=== PATIENT | male | born 1985 | race African-American/Black ===

== ENCOUNTER 2017-11-20 18:37 | Observation (INO) | payer OTHER ==
[~2017-11-20] VITALS: Ht 177.8 cm; Wt 55.4 kg
[2017-11-20] MEDS ORDERED: SODIUM CHLORIDE 0.9% 1000ML 1,000 ML IV ONE (18:56)
[2017-11-20] MEDS ORDERED: PIPERACILLIN/TAZOBACTAM 4.5 GM/100ML D5W IV STA (18:56)
--- NOTE | 2017-11-20 19:05 | EMERGENCY ROOM VISIT NOTE ---
History Report prepared by Shayeibe: Cayla Wang Under the Supervision of: Dr. Kendall Roque M.D. First contact with patient: 18:50 Chief Complaint: DEHYDRATION Stated Complaint: ABN LABS NOT EATING OR DRINKING Nursing Triage Summary: hx schizophrenia and is non-verbal patient has had decreased appetite, not eating or drinking. brought into ER for dehydration . History of Present Illness The patient is a 32 year old male who presents to the Emergency Room with complaints of possible dehydration. He is accompanied by 2 guards from [facility], where he resides in the [facility], due to a history of schizophrenia. Notes from [facility] show they were concerned that the patient has not been eating or drinking and has been febrile with an increased heart rate and low blood pressure. Additional history is limited secondary to the patients current mental state. Source of History: nursing staff, other ([facility] staff) History Limited By: other (patient is nonverbal) Onset: [employer] Position: other (global) Quality: other (dehydration) Timing: constant Modifying Factors (Worsening): other (not eating or drinking) Review of Systems See HPI for pertinent positives & negatives. A limited number of systems reviewed and were otherwise negative secondary to the patients mental state. Past Medical & Surgical Medical Problems: (1) Metabolic encephalopathy (2) Schizophrenia Social History Alcohol Use: none Drug Use: none Marital Status: single Housing Status: other ([facility]) Occupation Status: unemployed Current/Historical Medications Scheduled Benztropine Mesylate (Benztropine Mesylate), 0.5 MG PO DAILY Fluoxetine (Prozac), 40 MG PO DAILY Fluphenazine Decanoate (Fluphenazine Decanoate), 37.5 MG IM Q2 WEEKS Allergies Coded Allergies: No Known Allergies (Unverified , 11/20/17) Physical Exam Vital Signs Date Time Temp Pulse Resp B/P (MAP) Pulse Ox O2 Delivery O2 Flow Rate FiO2 11/20/17 22:09 36.8 101 18 116/77 100 11/20/17 21:11 95 13 99 Room Air 11/20/17 21:01 129/69 11/20/17 20:41 87 14 98 Room Air 11/20/17 20:36 85 13 98 Room Air 11/20/17 20:31 93/57 11/20/17 20:06 96 14 100 Room Air 11/20/17 20:01 145/73 11/20/17 19:42 129 20 100 Room Air 11/20/17 19:37 100 15 99 Room Air 11/20/17 19:31 136/72 11/20/17 19:12 100 Room Air 11/20/17 19:11 116 11/20/17 19:07 117 14 100 Room Air 11/20/17 19:01 129/82 11/20/17 18:54 120/81 11/20/17 18:43 37.2 133 22 124/73 99 Room Air Physical Exam GENERAL: Patient is in no acute distress. HEENT: No acute trauma, normocephalic atraumatic, mucous membranes moist, mild nasal congestion with rhinorrhea, no scleral icterus. NECK: No stridor, no adenopathy, no meningismus, trachea is midline. LUNGS: Clear to auscultation when listening anteriorly, breath sounds are equal , no wheezing, no respiratory distress. HEART: Tachycardic heart rate with regular rhythm, no murmurs. ABDOMEN: Soft, nontender, bowel sounds positive, no hernias, no peritonitis. EXTREMITIES: No cyanosis or edema, full range of motion of all the joints without pain or difficulty, no signs for acute trauma. NEUROLOGIC: Patient is awake, moves all extremities, seems somewhat confused though this may be baseline, no focal neuro deficits, answers questions inappropriately SKIN: No rash, no jaundice, no diaphoresis. Medical Decision & Procedures ER Provider Diagnostic Interpretation: Radiology results as stated below per my review and radiologist interpretation: CHEST ONE VIEW PORTABLE CLINICAL HISTORY: Sepsis COMPARISON STUDY: No previous studies for comparison. FINDINGS: The cardiac and mediastinal contours are normal. There is no evidence of focal pulmonary consolidation. There is no evidence of failure. No pleural effusions are visualized. IMPRESSION: No active disease in the chest. Electronically signed by: Vikram Teixeira M.D. 11/20/2017 7:[address] HEAD WITHOUT CONTRAST (CT) CLINICAL HISTORY: confusion CHANGE IN MENTAL STATUS. NONVERBAL PATIENT. COMPARISON STUDY: No previous studies for comparison. TECHNIQUE: Axial CT of the brain is performed from the vertex to the skull base. IV contrast was not administered for this examination. A dose lowering technique was utilized adhering to the principles of ALARA. CT DOSE: 614.27 mGy.cm FINDINGS: No intra or extra-axial mass lesions are visualized. There is no CT evidence of acute cortical infarction. There is no evidence of midline shift. There is no acute hemorrhage. No calvarial fractures are visualized. There is no evidence of pathologic ventricular dilatation. There is no evidence of acute sinusitis IMPRESSION: No acute intracranial findings Electronically signed by: Vikram Teixeira M.D. 11/20/2017 7:59 PM Laboratory Results 11/20/17 19:00 Red Blood Count 4.45, Mean Corpuscular Volume 81.6, Mean Corpuscular Hemoglobin 27.9, Mean Corpuscular Hemoglobin Concent 34.2, Mean Platelet Volume 9.8, Neutrophils (%) (Auto) 76.7, Lymphocytes (%) (Auto) 14.9, Monocytes (%) (Auto) 7.3, Eosinophils (%) (Auto) 0.6, Basophils (%) (Auto) 0.3, Neutrophils # (Auto) 4.72, Lymphocytes # (Auto) 0.92, Monocytes # (Auto) 0.45, Eosinophils # (Auto) 0.04, Basophils # (Auto) 0.02 11/20/17 19:00 Test 11/20/17 19:00 11/20/17 19:10 11/20/17 19:28 White Blood Count 6.16 K/uL (4.8-10.8) Red Blood Count 4.45 M/uL (4.7-6.1) Hemoglobin 12.4 g/dL (14.0-18.0) Hematocrit 36.3 % (42-52) Mean Corpuscular Volume 81.6 fL (80-100) Mean Corpuscular Hemoglobin 27.9 pg (25-34) Mean Corpuscular Hemoglobin Concent 34.2 g/dl (32-36) Platelet Count 268 K/uL (130-400) Mean Platelet Volume 9.8 fL (7.4-10.4) Neutrophils (%) (Auto) 76.7 % Lymphocytes (%) (Auto) 14.9 % Monocytes (%) (Auto) 7.3 % Eosinophils (%) (Auto) 0.6 % Basophils (%) (Auto) 0.3 % Neutrophils # (Auto) 4.72 K/uL (1.4-6.5) Lymphocytes # (Auto) 0.92 K/uL (1.2-3.4) Monocytes # (Auto) 0.45 K/uL (0.11-0.59) Eosinophils # (Auto) 0.04 K/uL (0-0.5) Basophils # (Auto) 0.02 K/uL (0-0.2) RDW Standard Deviation 39.3 fL (36.4-46.3) RDW Coefficient of Variation 13.0 % (11.5-14.5) Immature Granulocyte % (Auto) 0.2 % Immature Granulocyte # (Auto) 0.01 K/uL (0.00-0.02) Prothrombin Time 11.4 SECONDS (9.0-12.0) Prothromb Time International Ratio 1.1 (0.9-1.1) Activated Partial Thromboplast Time 20.3 SECONDS (21.0-31.0) Partial Thromboplastin Ratio 0.8 Anion Gap 6.0 mmol/L (3-11) Est Creatinine Clear Calc Drug Dose 79.3 ml/min Estimated GFR () 108.3 Estimated GFR (Non- 93.5 BUN/Creatinine Ratio 19.5 (10-20) Calcium Level 9.3 mg/dl (8.5-10.1) Magnesium Level 2.3 mg/dl (1.8-2.4) Total Bilirubin 0.6 mg/dl (0.2-1) Aspartate Amino Transf (AST/SGOT) 51 U/L (15-37) Alanine Aminotransferase (ALT/SGPT) 24 U/L (12-78) Alkaline Phosphatase 42 U/L (45-117) Troponin I < 0.015 ng/ml (0-0.045) Total Protein 8.9 gm/dl (6.4-8.2) Albumin 4.2 gm/dl (3.4-5.0) Globulin 4.7 gm/dl (2.5-4.0) Albumin/Globulin Ratio 0.9 (0.9-2) Thyroid Stimulating Hormone (TSH) 1.120 uIu/ml (0.300-4.500) Bedside Lactic Acid Venous 2.58 mmol/L (0.90-1.70) Ammonia < 10.0 umol/L (11-32) Laboratory results reviewed by me. Medications Administered Medications (Trade) Dose Ordered Sig/Josephine Route Start Time Stop Time Status Last Admin Dose Admin Sodium Chloride 1,000 ml @ 999 mls/hr Q1H1M ONCE IV 11/20/17 18:56 11/20/17 19:56 DC 11/20/17 19:43 999 MLS/HR Piperacillin Sod/ Tazobactam Sod (Zosyn Iv) 4.5 gm ONE STAT IV 11/20/17 18:56 11/20/17 19:01 DC 11/20/17 19:43 4.5 GM Lactated Ringer's 1,000 ml @ 999 mls/hr Q1H1M IV 11/20/17 20:00 12/20/17 19:59 11/20/17 20:01 999 MLS/HR ECG Per My Interpretation Indication: weakness Rate (beats per minute): 127 Rhythm: sinus tachycardia (with nonspecific ST changes diffusely) Findings: other (No ST elevation, baseline artifact, no PVC's) ED Course 1853: The patient was evaluated in room B3B. A complete history and physical exam was performed. 1855: Zosyn 4.5 gm IV, NSS 1000 ml @ 999 mls/hr IV. 2041: I reevaluated the patient. He is asleep. I discussed my recommendation he remain in the hospital for further evaluation and management with the [facility] guards and they understand and are agreeable with the plan. 2046: I discussed the patients case with Dr. Naik, [facility] Hospitalist. The patient will be further evaluated. Medical Decision The differential diagnoses considered include pneumonia, electrolyte imbalance, anemia, UTI, dehydration, sepsis, meningitis and viral illness. There is no leukocytosis or concerning anemia. No significant electrolyte abnormality, kidney failure. The patient does have a few scattered liver enzyme elevations. He appears to be in a euthyroid state. Lactic acid level is slightly elevated, this could be consistent with infection or just dehydration. Chest film does not show pneumonia or CHF. EKG shows a sinus tachycardia, no acute ischemia. Cardiac enzyme testing 1 is not consistent with acute cardiac injury. Brain CT shows no acute bleed or mass-effect. Blood cultures are pending. Ammonia level is not elevated. Patient presents dehydrated, he was tachycardic. There was concern for fever at the [facility] however, there was no fever by our monitoring. The patient received IV fluids, he received 1 L of saline and then 1 L of lactated Ringer's. He received IV Zosyn as antibiotic coverage. The patient's heart rate has improved. He is comfortable. He does not seem in significant distress. He does not demonstrate findings consistent with meningitis or meningismus. I do think a hospital stay for monitoring, further workup, and hydration is warranted. I did speak to the patient and the [facility] guards. The on-call hospitalist has been consulted. Case management has been involved. Medication Reconcilliation Current Medication List: was personally reviewed by me Blood Pressure Screening Patient's blood pressure: Elevated blood pressure Blood pressure disposition: Referred to PCP (The patients blood pressure will be further evaluated by the inpatient hospital medicine team) Consults Time Called: 2044 Consulting Physician: Dr. Naik, [facility] Hospitalist Returned Call: 2046 I discussed the patients case with Dr. Naik, [facility] Hospitalist. The patient will be further evaluated. Impression Primary Impression: Tachycardia Additional Impression: Dehydration Scribe Attestation The scribe's documentation has been prepared under my direction and personally reviewed by me in its entirety. I confirm that the note above accurately reflects all work, treatment, procedures, and medical decision making performed by me. Departure Information Dispostion Being Evaluated By Hospitalist Patient Instructions My [facility] Health Problem Qualifiers
--- NOTE | 2017-11-20 19:19 | DIAGNOSTIC IMAGING REPORT ---
CHEST ONE VIEW PORTABLE CLINICAL HISTORY: Sepsis COMPARISON STUDY: No previous studies for comparison. FINDINGS: The cardiac and mediastinal contours are normal. There is no evidence of focal pulmonary consolidation. There is no evidence of failure. No pleural effusions are visualized.[ IMPRESSION: No active disease in the chest. Electronically signed by: Vikram Teixeira M.D. 11/20/2017 7:18 PM Dictated Date/Time: 11/20/2017 7:18 PM
[2017-11-20 19:21] LABS: BASO % 0.3 %; BASO ABS # 0.02 K/uL (0-0.2); EOS % 0.6 %; EOS ABS # 0.04 K/uL (0-0.5); HEMATOCRIT 36.3 % (42-52); HEMOGLOBIN 12.4 g/dL (14.0-18.0); IG# 0.01 K/uL (0.00-0.02); LYMPH % 14.9 %; LYMPH ABS # 0.92 K/uL (1.2-3.4); MEAN CELL VOLUME 81.6 fL (80-100); MEAN CORPUSCULAR HEMOGLOBIN 27.9 pg (25-34); MEAN CORPUSCULAR HGB CONC 34.2 g/dl (32-36); MEAN PLATELET VOLUME 9.8 fL (7.4-10.4); MONO % 7.3 %; MONO ABS # 0.45 K/uL (0.11-0.59); NEUT % 76.7 %; NEUT ABS # 4.72 K/uL (1.4-6.5); PLATELET COUNT 268 K/uL (130-400); RED CELL DISTRIBUTION WIDTH SD 39.3 fL (36.4-46.3); WHITE BLOOD COUNT 6.16 K/uL (4.8-10.8)
[2017-11-20 19:33] LABS: INR 1.1 (0.9-1.1); PTT PATIENT 20.3 SECONDS (21.0-31.0)
[2017-11-20 19:50] LABS: ALBUMIN 4.2 gm/dl (3.4-5.0); ALKALINE PHOSPHATASE 42 U/L (45-117); ALT/SGPT 24 U/L (12-78); AST/SGOT 51 U/L (15-37); BLOOD UREA NITROGEN 20 mg/dl (7-18); CALCIUM 9.3 mg/dl (8.5-10.1); CARBON DIOXIDE 28 mmol/L (21-32); CREATININE 1.05 mg/dl (0.60-1.40); GLUCOSE 100 mg/dl (70-99); POTASSIUM 3.4 mmol/L (3.5-5.1); SODIUM 141 mmol/L (136-145); TOTAL PROTEIN 8.9 gm/dl (6.4-8.2)
[2017-11-20] MEDS: LACTATED RINGER'S 1000ML 1,000 ML IV SCH ×2 (20:01→20:36)
--- NOTE | 2017-11-20 20:01 | DIAGNOSTIC IMAGING REPORT ---
CT HEAD WITHOUT CONTRAST (CT) CLINICAL HISTORY: confusion CHANGE IN MENTAL STATUS. NONVERBAL PATIENT. COMPARISON STUDY: No previous studies for comparison. TECHNIQUE: Axial CT of the brain is performed from the vertex to the skull base. IV contrast was not administered for this examination. A dose lowering technique was utilized adhering to the principles of ALARA. CT DOSE: 614.27 mGy.cm FINDINGS: No intra or extra-axial mass lesions are visualized. There is no CT evidence of acute cortical infarction. There is no evidence of midline shift. There is no acute hemorrhage. No calvarial fractures are visualized. There is no evidence of pathologic ventricular dilatation. There is no evidence of acute sinusitis IMPRESSION: No acute intracranial findings Electronically signed by: Vikram Teixeira M.D. 11/20/2017 7:59 PM Dictated Date/Time: 11/20/2017 7:58 PM
--- NOTE | 2017-11-20 21:11 | History and Physical ---
History & Physical Date & Time of Service: November 20, 2017 at 21:11 Chief Complaint: Abn Labs Not Eating Or Drinking Primary Care Physician: Mayuri TURNER History of Present Illness Source: hospital records, police This is a 32 yo m from [facility] with a history of schizophrenia that presents to us with possible dehydration and increasing weakness. Limited history as the patient is responding to questions however limited responses. The guards states that he was in the general population a few weeks ago and he started to stop washing, taking care of himself or taking his medications. He was transferred to mental health as he continued to decline and had increasing weakness as well. The one guard notes that they had to force him to take his medications this morning as he has not been taking them for days. The patient was sent to the ED for evaluation for concern for infection. He lays shivering in the bed and oriented x 3. When asked about pain he denies this. Past Medical/Surgical History Medical Problems: (1) Metabolic encephalopathy (2) Schizophrenia Family History Unable to obtain due to limited responses Social History Unable to obtain due to limited responses Drug Use: none Marital Status: single Occupational Status: unemployed Immunizations History of Influenza Vaccine: Unknown History of Tetanus Vaccine?: Unknown History of Pneumococcal: Unknown History of Hepatitis B Vaccine: Unknown Allergies Coded Allergies: No Known Allergies (Unverified , 11/20/17) Home Medications Scheduled Benztropine Mesylate (Benztropine Mesylate), 0.5 MG PO DAILY Fluoxetine (Prozac), 40 MG PO DAILY Fluphenazine Decanoate (Fluphenazine Decanoate), 37.5 MG IM Q2 WEEKS Review of Systems Unable to obtain due to limited responses Physical Exam Vital Signs Date Time Temp Pulse Resp B/P (MAP) Pulse Ox O2 Delivery O2 Flow Rate FiO2 11/20/17 20:36 85 13 98 Room Air 11/20/17 20:31 93/57 11/20/17 20:06 96 14 100 Room Air 11/20/17 20:01 145/73 11/20/17 19:42 129 20 100 Room Air 11/20/17 19:37 100 15 99 Room Air 11/20/17 19:31 136/72 11/20/17 19:12 100 Room Air 11/20/17 19:11 116 11/20/17 19:07 117 14 100 Room Air 11/20/17 19:01 129/82 11/20/17 18:54 120/81 11/20/17 18:43 37.2 133 22 124/73 99 Room Air General Appearance: + mild distress (stoic , does not turn head to look at interviewer to answer) Head: normocephalic, atraumatic Eyes: normal inspection ENT: normal ENT inspection Neck: supple Respiratory/Chest: normal breath sounds, no respiratory distress, no accessory muscle use Cardiovascular: regular rate, rhythm, no murmur, normal peripheral pulses Abdomen/GI: normal bowel sounds, non tender, soft Extremities/Musculoskelatal: no calf tenderness, no pedal edema Neurologic/Psych: alert, oriented x 3, + pertinent finding (flat affect) Skin: normal color, warm/dry, no rash Lymphatic: no adenopathy Diagnostics Laboratory Results Results Past 24 Hours Test 11/20/17 19:00 11/20/17 19:10 11/20/17 19:28 Range/Units White Blood Count 6.16 4.8-10.8 K/uL Red Blood Count 4.45 4.7-6.1 M/uL Hemoglobin 12.4 14.0-18.0 g/dL Hematocrit 36.3 42-52 % Mean Corpuscular Volume 81.6 80-100 fL Mean Corpuscular Hemoglobin 27.9 25-34 pg Mean Corpuscular Hemoglobin Concent 34.2 32-36 g/dl Platelet Count 268 130-400 K/uL Mean Platelet Volume 9.8 7.4-10.4 fL Neutrophils (%) (Auto) 76.7 % Lymphocytes (%) (Auto) 14.9 % Monocytes (%) (Auto) 7.3 % Eosinophils (%) (Auto) 0.6 % Basophils (%) (Auto) 0.3 % Neutrophils # (Auto) 4.72 1.4-6.5 K/uL Lymphocytes # (Auto) 0.92 1.2-3.4 K/uL Monocytes # (Auto) 0.45 0.11-0.59 K/uL Eosinophils # (Auto) 0.04 0-0.5 K/uL Basophils # (Auto) 0.02 0-0.2 K/uL RDW Standard Deviation 39.3 36.4-46.3 fL RDW Coefficient of Variation 13.0 11.5-14.5 % Immature Granulocyte % (Auto) 0.2 % Immature Granulocyte # (Auto) 0.01 0.00-0.02 K/uL Prothrombin Time 11.4 9.0-12.0 SECONDS Prothromb Time International Ratio 1.1 0.9-1.1 Activated Partial Thromboplast Time 20.3 21.0-31.0 SECONDS Partial Thromboplastin Ratio 0.8 Sodium Level 141 136-145 mmol/L Potassium Level 3.4 3.5-5.1 mmol/L Chloride Level 107 98-107 mmol/L Carbon Dioxide Level 28 21-32 mmol/L Anion Gap 6.0 3-11 mmol/L Blood Urea Nitrogen 20 7-18 mg/dl Creatinine 1.05 0.60-1.40 mg/dl Est Creatinine Clear Calc Drug Dose 79.3 ml/min Estimated GFR () 108.3 Estimated GFR (Non- 93.5 BUN/Creatinine Ratio 19.5 10-20 Random Glucose 100 70-99 mg/dl Calcium Level 9.3 8.5-10.1 mg/dl Magnesium Level 2.3 1.8-2.4 mg/dl Total Bilirubin 0.6 0.2-1 mg/dl Aspartate Amino Transf (AST/SGOT) 51 15-37 U/L Alanine Aminotransferase (ALT/SGPT) 24 12-78 U/L Alkaline Phosphatase 42 45-117 U/L Troponin I < 0.015 0-0.045 ng/ml Total Protein 8.9 6.4-8.2 gm/dl Albumin 4.2 3.4-5.0 gm/dl Globulin 4.7 2.5-4.0 gm/dl Albumin/Globulin Ratio 0.9 0.9-2 Thyroid Stimulating Hormone (TSH) 1.120 0.300-4.500 uIu/ml Bedside Lactic Acid Venous 2.58 0.90-1.70 mmol/L Ammonia < 10.0 11-32 umol/L Microbiology Results 11/20/17 Blood Culture, Received Pending 11/20/17 Blood Culture, Received Pending Diagnostic Radiology CHEST ONE VIEW PORTABLE CLINICAL HISTORY: Sepsis COMPARISON STUDY: No previous studies for comparison. FINDINGS: The cardiac and mediastinal contours are normal. There is no evidence of focal pulmonary consolidation. There is no evidence of failure. No pleural effusions are visualized.[ IMPRESSION: No active disease in the chest. [~ rep ct add3]] CT HEAD WITHOUT CONTRAST (CT) CLINICAL HISTORY: confusion CHANGE IN MENTAL STATUS. NONVERBAL PATIENT. COMPARISON STUDY: No previous studies for comparison. TECHNIQUE: Axial CT of the brain is performed from the vertex to the skull base. IV contrast was not administered for this examination. A dose lowering technique was utilized adhering to the principles of ALARA. CT DOSE: 614.27 mGy.cm FINDINGS: No intra or extra-axial mass lesions are visualized. There is no CT evidence of acute cortical infarction. There is no evidence of midline shift. There is no acute hemorrhage. No calvarial fractures are visualized. There is no evidence of pathologic ventricular dilatation. There is no evidence of acute sinusitis IMPRESSION: No acute intracranial findings EKG HR 127 QTc 323 Sinus tachycardia without acute ischemic changes, ectopy appreciated Impression Assessment and Plan This is a 32 yo m from [facility] with a history of schizophrenia presenting with FTT, dehydration Dehydration/ Failure to thrive possibly secondary to noncompliance/ uncontrolled schizophrenia vs infection - patient does not have any indication of infection or potential source identified, received Zosyn in the ED - blood culture pending - more likely exacerbation of schizophrenia possible catatonic type - will continue the Fluoxetine and Benztropine; consult psych - repeat CBC in am DVT Prophylaxis - heparin bid FULL CODE Attending addendum: I have physically seen this patient, have supervised the medical residents activities, and agree with the H&P unless as otherwise noted. Assessment and Plan: Dehydration/FTT/uncontrolled schizophrenia-- Received Zosyn IV in the ED empirically, but would not continue without signs or symptoms of infection. IV fluids for rehydration. Continue fluoxetine and benztropine. Consult psychiatry. Follow blood cultures. Serial laboratories. Advanced Directives Existing Advance Directive: No Existing Living Will: No Existing Power of Certified Welding Inspector: No Resuscitation Status VTE Prophylaxis Will order VTE Prophylaxis: Yes Social Service Consult None Apply Note Total Time: Critical Care 30 - 74 minutes Additional Copies To [facility]
[2017-11-20] MEDS ORDERED: ALUMINUM/MAGNESIUM/SIMETH (MAALOX MAX) 30 ML UDC PO PRN ×2 (21:15→22:00)
[2017-11-20] MEDS ORDERED: ACETAMINOPHEN 325 MG TAB PO PRN ×2 (21:15→22:00)
[2017-11-20] MEDS ORDERED: MAGNESIUM HYDROXIDE SUSP 30 ML UDC PO PRN ×2 (21:15→22:00)
[2017-11-20] MEDS ORDERED: POLYETHYLENE (MIRALAX) 17 GM PACK PO PRN ×2 (21:15→23:00)
[2017-11-20] MEDS ORDERED: ONDANSETRON INJ 2 MG/ML 2 ML VIAL IV PRN ×2 (21:15→22:00)
[2017-11-20] MEDS ORDERED: PRLDMDV IM (21:23)
[2017-11-20] MEDS ORDERED: BENZ0.5T2 PO (21:23)
[2017-11-20] MEDS ORDERED: FLUO20CA35 PO (21:23)
[2017-11-20] MEDS ORDERED: FLUPHENAZINE DECANOATE 25 MG/ML IM SCH (21:45)
[2017-11-20 22:30] VITALS: BP_SYST 116; BP_SYST 129; BP_DIAS 77; BP_DIAS 80; PULSE 102; TEMP 36.8; Ht 177.8 cm; Wt 55.4 kg
[2017-11-20 23:46] VITALS: BP 125/62; PULSE 91; TEMP 36.8; O2SAT 100
[2017-11-20 23:59] VITALS: O2SAT 98
[2017-11-21] VITALS (9 sets, daily range): BP systolic 110–149; BP diastolic 73–91; PULSE 76–111; TEMP 36.5–37; O2SAT 97–100
[2017-11-21] MEDS ORDERED: IV FLUIDS COMPLETED PRN (00:15)
[2017-11-21] MEDS: NSS + 20MEQ KCL 1000ML 1,000 ML IV SCH ×3 (02:37→18:27)
[2017-11-21 05:53] LABS: BASO % 0.3 %; BASO ABS # 0.01 K/uL (0-0.2); EOS % 1.1 %; EOS ABS # 0.04 K/uL (0-0.5); HEMATOCRIT 30.4 % (42-52); LYMPH % 29.8 %; LYMPH ABS # 1.08 K/uL (1.2-3.4); MEAN CELL VOLUME 82.6 fL (80-100); MEAN CORPUSCULAR HEMOGLOBIN 27.2 pg (25-34); MEAN CORPUSCULAR HGB CONC 32.9 g/dl (32-36); MEAN PLATELET VOLUME 9.8 fL (7.4-10.4); MONO % 6.9 %; MONO ABS # 0.25 K/uL (0.11-0.59); NEUT % 61.9 %; NEUT ABS # 2.24 K/uL (1.4-6.5); PLATELET COUNT 205 K/uL (130-400); RED CELL DISTRIBUTION WIDTH CV 13.1 % (11.5-14.5); RED CELL DISTRIBUTION WIDTH SD 39.8 fL (36.4-46.3); WHITE BLOOD COUNT 3.62 K/uL (4.8-10.8)
[2017-11-21 06:41] LABS: BLOOD UREA NITROGEN 18 mg/dl (7-18); CALCIUM 8.4 mg/dl (8.5-10.1); CARBON DIOXIDE 29 mmol/L (21-32); CREATININE 0.63 mg/dl (0.60-1.40); GLUCOSE 83 mg/dl (70-99); POTASSIUM 3.5 mmol/L (3.5-5.1); SODIUM 145 mmol/L (136-145)
[2017-11-21] MEDS: FLUOXETINE HCL 20 MG CAP PO SCH (08:32)
[2017-11-21] MEDS: BENZTROPINE MESYLATE 0.5 MG TAB PO SCH (08:32)
[2017-11-21] MEDS: HEPARIN SOD 5000 UNIT/0.5 ML CARP SQ SCH ×2 (08:32→21:00)
[2017-11-21] MEDS ORDERED: BENZTROPINE MESYLATE 0.5 MG TAB PO SCH (09:00)
[2017-11-21] MEDS ORDERED: FLUOXETINE HCL 20 MG CAP PO SCH (09:00)
[2017-11-21] MEDS ORDERED: HEPARIN SOD 5000 UNIT/0.5 ML CARP SQ SCH (09:00)
--- NOTE | 2017-11-21 10:36 | Psychiatric Consultation ---
Consultation Date of Consultation November 21, 2017. Identifying Data 32-year-old male inmate at [facility] with a reported history of schizophrenia who was brought in from their mental health unit and is admitted to the hospitalist service for workup of fever, tachycardia, and hypotension. Psychiatry is consulted due to history of schizophrenia and unresponsiveness. Chief Complaint Nonverbal. History of Present Illness According to records, the patient was brought into the emergency room yesterday [facility] the [facility]. One progress note is available in his chart from 11/20/2017, from [facility]. 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 He had been refusing oral medications and refusing to eat or drink. Yesterday at the [facility]itentiary he received Lorazepam 4 mg, Prolixin immediate release 7.5 mg, and Prolixin Decanoate 37.5 mg all IM. He was more cooperative and eating after receiving the medications, but remains nonverbal. He developed tachycardia, hypotension, and fever, and due to concerns for dehydration or infection, he was transported to the hospital. His medical workup has been unremarkable so far; labs revealed anemia, TSH normal, and no other significant abnormalities. He has had slight intermittent tachycardia here, EKG was sinus tachycardia, and he has been afebrile. He has not been cooperative with any assessments here, does not answer most questions. Contacted the present to request his psychiatric records and were informed by medical staff there that he had no records. Spoke with Dr. Hein, the on-call psychiatrist at the present, who stated she does not know the patient, but does have access to his medical record. She states he does have a psychiatric evaluation and progress notes, and that the team was attempting to get a second opinion for forced medications, as he had been refusing oral medications for months. She does not think he gotten Prolixin Decanoate since April 2017, and said he had also been prescribed fluoxetine, Prolixin, and benztropine orally in the past. Although he had a long-standing history of minimal responsiveness and engagement in treatment, his condition had worsened in the past 2 weeks. She did not know what his commitment status was, although staff at the penitentiary stated he was on a 303 commitment. On my assessment, the patient is awake with eyes open, but does not respond verbally to any questions, does not shake or nod his head, and simply stares straight ahead. The guard state that he spoke minimally to the physician who saw him this morning, but that typically he does not respond to questions. Reviewed the case with Dr. Jacobs, stated that we are attempting to get more information from the penitentiary, and confirmed that he will be returning to their mental health unit at discharge. Past Psychiatric History Past Medication Trials Per the on-call psychiatrist at the present, the patient was on fluoxetine, Prolixin, and benztropine in the past, but has not taken any medication since April 2017. Additional Notes Very little is known about the patient's past history, other than penitentiary records indicating a history of schizophrenia. Patient is nonverbal and does not answer any questions. Past Medical/Surgical History (1) Metabolic encephalopathy (2) Dehydration (3) Tachycardia Allergies Allergies: Coded Allergies: No Known Allergies (Unverified , 11/20/17) Home Medications Scheduled Benztropine Mesylate (Benztropine Mesylate), 0.5 MG PO DAILY Fluphenazine Decanoate (Fluphenazine Decanoate), 37.5 MG IM Q2 WEEKS Family History Patient reports no known family medical history. Unknown. Alcohol Use Unknown. Smoking Use Smoking Status: Unknown if Ever Smoked Substance History Unknown. Personal History Lives in: Inmate at [facility] Review of Systems Patient refuses to answer questions. Examination Vital Signs Vital Signs Past 12 Hours Date Time Temp Pulse Resp B/P (MAP) Pulse Ox O2 Delivery O2 Flow Rate FiO2 11/21/17 08:00 Room Air 11/21/17 07:14 37.0 83 23 149/91 (110) 100 Room Air 11/21/17 04:00 97 Room Air 11/21/17 03:35 37.0 85 18 110/73 (85) 100 Room Air 11/20/17 23:59 98 Room Air 11/20/17 23:46 36.8 91 15 125/62 (83) 100 Room Air Laboratory Results Last 24 Hours Test 11/20/17 19:00 11/20/17 19:10 11/20/17 19:28 11/20/17 23:41 White Blood Count 6.16 K/uL Red Blood Count 4.45 M/uL Hemoglobin 12.4 g/dL Hematocrit 36.3 % Mean Corpuscular Volume 81.6 fL Mean Corpuscular Hemoglobin 27.9 pg Mean Corpuscular Hemoglobin Concent 34.2 g/dl Platelet Count 268 K/uL Mean Platelet Volume 9.8 fL Neutrophils (%) (Auto) 76.7 % Lymphocytes (%) (Auto) 14.9 % Monocytes (%) (Auto) 7.3 % Eosinophils (%) (Auto) 0.6 % Basophils (%) (Auto) 0.3 % Neutrophils # (Auto) 4.72 K/uL Lymphocytes # (Auto) 0.92 K/uL Monocytes # (Auto) 0.45 K/uL Eosinophils # (Auto) 0.04 K/uL Basophils # (Auto) 0.02 K/uL RDW Standard Deviation 39.3 fL RDW Coefficient of Variation 13.0 % Immature Granulocyte % (Auto) 0.2 % Immature Granulocyte # (Auto) 0.01 K/uL Prothrombin Time 11.4 SECONDS Prothromb Time International Ratio 1.1 Activated Partial Thromboplast Time 20.3 SECONDS Partial Thromboplastin Ratio 0.8 Sodium Level 141 mmol/L Potassium Level 3.4 mmol/L Chloride Level 107 mmol/L Carbon Dioxide Level 28 mmol/L Anion Gap 6.0 mmol/L Blood Urea Nitrogen 20 mg/dl Creatinine 1.05 mg/dl Est Creatinine Clear Calc Drug Dose 79.3 ml/min Estimated GFR () 108.3 Estimated GFR (Non- 93.5 BUN/Creatinine Ratio 19.5 Random Glucose 100 mg/dl Calcium Level 9.3 mg/dl Magnesium Level 2.3 mg/dl Total Bilirubin 0.6 mg/dl Aspartate Amino Transf (AST/SGOT) 51 U/L Alanine Aminotransferase (ALT/SGPT) 24 U/L Alkaline Phosphatase 42 U/L Troponin I < 0.015 ng/ml Total Protein 8.9 gm/dl Albumin 4.2 gm/dl Globulin 4.7 gm/dl Albumin/Globulin Ratio 0.9 Thyroid Stimulating Hormone (TSH) 1.120 uIu/ml Bedside Lactic Acid Venous 2.58 mmol/L Ammonia < 10.0 umol/L Lactic Acid Level 1.5 mmol/L Test 11/21/17 02:10 11/21/17 05:11 Urine Color YELLOW Urine Appearance CLEAR Urine pH 5.0 Urine Specific [place] 1.027 Urine Protein TRACE Urine Glucose (UA) NEG Urine Ketones TRACE Urine Occult Blood NEG Urine Nitrite NEG Urine Bilirubin NEG Urine Urobilinogen NEG Urine Leukocyte Esterase NEG Urine WBC (Auto) 1-5 /hpf Urine RBC (Auto) 0-4 /hpf Urine Hyaline Casts (Auto) 5-10 /lpf Urine Epithelial Cells (Auto) 5-10 /lpf Urine Bacteria (Auto) NEG Urine Opiates Screen NEG Urine Methadone, Qualitative NEG Urine Barbiturates NEG Urine Phencyclidine (PCP) Level NEG Ur Amphetamine/Methamphetamine NEG MDMA (Ecstasy) Screen NEG Urine Benzodiazepines Screen NEG Urine Cocaine Metabolite NEG Urine Marijuana (THC) NEG White Blood Count 3.62 K/uL Red Blood Count 3.68 M/uL Hemoglobin 10.0 g/dL Hematocrit 30.4 % Mean Corpuscular Volume 82.6 fL Mean Corpuscular Hemoglobin 27.2 pg Mean Corpuscular Hemoglobin Concent 32.9 g/dl Platelet Count 205 K/uL Mean Platelet Volume 9.8 fL Neutrophils (%) (Auto) 61.9 % Lymphocytes (%) (Auto) 29.8 % Monocytes (%) (Auto) 6.9 % Eosinophils (%) (Auto) 1.1 % Basophils (%) (Auto) 0.3 % Neutrophils # (Auto) 2.24 K/uL Lymphocytes # (Auto) 1.08 K/uL Monocytes # (Auto) 0.25 K/uL Eosinophils # (Auto) 0.04 K/uL Basophils # (Auto) 0.01 K/uL RDW Standard Deviation 39.8 fL RDW Coefficient of Variation 13.1 % Immature Granulocyte % (Auto) 0.0 % Immature Granulocyte # (Auto) 0.00 K/uL Sodium Level 145 mmol/L Potassium Level 3.5 mmol/L Chloride Level 111 mmol/L Carbon Dioxide Level 29 mmol/L Anion Gap 5.0 mmol/L Blood Urea Nitrogen 18 mg/dl Creatinine 0.63 mg/dl Est Creatinine Clear Calc Drug Dose 131.9 ml/min Estimated GFR () > 150.0 Estimated GFR (Non- 130.4 BUN/Creatinine Ratio 28.9 Random Glucose 83 mg/dl Calcium Level 8.4 mg/dl Mental Examination During interview pt is: other (Lying in bed in no acute distress, eyes open, staring straight ahead.) Appearance: appropriately dressed (Hospital gown) Eye contact is: poor (Eyes open, but makes only brief fleeting eye contact.) Motor behavior is: other (No abnormal movements initially, but towards the end of the attempt to interview him, began shaking arms and legs.) Affect: blunted Mood is: other (Patient does not respond to questions.) Thought process: other (Nonverbal, so cannot assess.) Thought content: other (Nonverbal, so cannot assess.) Impression / Recommendations Impression 32-year-old penit[facility]iary inmate with a reported history of schizophrenia, who has been noncompliant with treatment for months, but worsened in the past couple of weeks with refusal to eat or drink. He was transferred to the pen[facility]entiary mental health unit and received medications over objection yesterday, and then developed tachycardia, hypotension, and fever so was transferred here to rule out an infectious cause. Medical workup has been negative so far. He is nonverbal and does not engage in the interview, and we have limited information from the penitentiary. It is unclear what his commitment status is, but he will be returning to the penitentiary mental health unit upon medical clearance. Recommendations (1) Schizophrenia -Historical diagnoses of schizophrenia per penitentiary records. Reportedly received Prolixin immediate release 7.5 mg, Prolixin Decanoate 37.5 mg, and lorazepam 4 mg IM yesterday at the penitentiary. There is not sufficient information to make a diagnosis, but the differential includes decompensated schizophrenia, catatonia (which can be caused by psychiatric or medical illness), behavioral (choosing not to communicate, eat, drink, or take medication), and malingering (engaging in specific behaviors with goal of manipulating others and achieving secondary gain, such as transfer out of a specific unit or out of the present to the hospital). -Attempting to get records from penitentiary, but has had some difficulty doing so. On-call psychiatrist was contacted as well as above. -I will order Lorazepam 2 mg IV and Prolixin 5 mg IM as needed for psychosis or agitation while here, and advised patient that he can also ask for these medications as he received them yesterday and they appeared helpful per the brief penitentiary documentation that we have. If he is willing to accept a dose of lorazepam, would start with 2 mg IV and given another 2 mg 1 hour later, while monitoring for response. If he is catatonic, would see a definite change with more volitional behaviors immediately after receiving the medication. I offered this to him today, but he did not respond and did not indicate either acceptance or refusal of medication.
[2017-11-21] MEDS ORDERED: FLUPHENAZINE HCL 2.5 MG/ML IM PRN (11:00)
[2017-11-21] MEDS ORDERED: LORAZEPAM 2 MG/ML 1 ML VIAL IV PRN (11:00)
--- NOTE | 2017-11-21 12:33 | Family Medicine Progress Note ---
Progress Note Date of Service November 21, 2017. Subjective Pt evaluation today including: conversation w/ patient, physical exam, chart review, lab review Pain: denies any discomfort this AM PO Intake: tolerating lunch (/3) Voiding: no voiding problems This AM pt was verbal reported feeling better and denied any discomfort. Agreed by shaking head yes when asked if weakness is better. However, pt was unable to provide name and date of and started saying words that did not make sense. Constitutional: No fever Respiratory: No shortness of breath Cardiovascular: No chest pain Abdomen: No pain, No nausea, No vomiting Medications Current Inpatient Medications Medications (Trade) Dose Ordered Sig/Josephine Route Start Time Stop Time Status Last Admin Dose Admin Acetaminophen (Tylenol Tab) 650 mg Q4H PRN PO 11/20/17 22:00 12/20/17 21:59 Al Hydrox/Mg Hydrox/Simethicone (Maalox Max Susp) 15 ml Q4H PRN PO 11/20/17 22:00 12/20/17 21:59 Magnesium Hydroxide (Milk Of Magnesia Susp) 30 ml Q12H PRN PO 11/20/17 22:00 12/20/17 21:59 Ondansetron HCl (Zofran Inj) 4 mg Q6H PRN IV 11/20/17 22:00 12/20/17 21:59 Polyethylene (Miralax Powder Packet) 17 gm DAILY PRN PO 11/20/17 23:00 12/20/17 22:59 Heparin Sodium (Porcine) (Heparin Sq 5000 Unit/0.5ml) 5,000 unit Q12 SQ 11/21/17 09:00 12/21/17 08:59 Benztropine Mesylate (Cogentin Tab) 0.5 mg DAILY PO 11/21/17 09:00 12/21/17 08:59 Fluoxetine HCl (Prozac Cap) 40 mg DAILY PO 11/21/17 09:00 12/21/17 08:59 Fluphenazine Decanoate (Prolixin Decanoate Inj) 37.5 mg Q14D IM 12/02/17 09:00 01/01/18 08:59 Miscellaneous (Iv Fluids Completed) 1 ea PRN PRN N/A 11/21/17 00:15 11/21/18 00:14 Potassium Chloride/Sodium Chloride 1,000 ml @ 125 mls/hr Q8H IV 11/21/17 02:15 12/21/17 02:14 11/21/17 11:31 125 MLS/HR Lorazepam (Ativan Inj) 2 mg Q4H PRN IV 11/21/17 11:00 12/21/17 10:59 UNV Fluphenazine HCl (Prolixin Inj) 5 mg Q4 PRN IM 11/21/17 11:00 12/21/17 10:59 UNV Objective Vital Signs Date Time Temp Pulse Resp B/P (MAP) Pulse Ox O2 Delivery O2 Flow Rate FiO2 11/21/17 11:51 36.8 111 20 140/85 (103) 100 Room Air 11/21/17 08:00 Room Air 11/21/17 07:14 37.0 83 23 149/91 (110) 100 Room Air 11/21/17 04:00 97 Room Air 11/21/17 03:35 37.0 85 18 110/73 (85) 100 Room Air 11/20/17 23:59 98 Room Air 11/20/17 23:46 36.8 91 15 125/62 (83) 100 Room Air 11/20/17 22:30 102 15 129/80 11/20/17 22:30 36.8 18 116/77 Room Air 11/20/17 22:09 36.8 101 18 116/77 100 11/20/17 21:11 95 13 99 Room Air 11/20/17 21:01 129/69 11/20/17 20:41 87 14 98 Room Air 11/20/17 20:36 85 13 98 Room Air 11/20/17 20:31 93/57 11/20/17 20:06 96 14 100 Room Air 11/20/17 20:01 145/73 11/20/17 19:42 129 20 100 Room Air 11/20/17 19:37 100 15 99 Room Air 11/20/17 19:31 136/72 11/20/17 19:12 100 Room Air 11/20/17 19:11 116 11/20/17 19:07 117 14 100 Room Air 11/20/17 19:01 129/82 18 18:54 120/81 11/20/17 18:43 37.2 133 22 124/73 99 Room Air Physical Exam General Appearance: no apparent distress Eyes: normal inspection Respiratory/Chest: lungs clear, normal breath sounds Cardiovascular: regular rate, rhythm, no murmur Abdomen: normal bowel sounds, non tender, soft Extremities: non-tender, no pedal edema Neurologic/Psychiatric: alert, + pertinent finding (A&O x 1 to person only; flat affect; thought process is very loose/word salad; thought content sis illusion/delusional - believes he is working for the [employer] and i am a govt agency employ here to screen him) Skin: warm/dry Laboratory Results 11/21/17 05:11 Red Blood Count 3.68, Mean Corpuscular Volume 82.6, Mean Corpuscular Hemoglobin 27.2, Mean Corpuscular Hemoglobin Concent 32.9, Mean Platelet Volume 9.8, Neutrophils (%) (Auto) 61.9, Lymphocytes (%) (Auto) 29.8, Monocytes (%) (Auto) 6.9, Eosinophils (%) (Auto) 1.1, Basophils (%) (Auto) 0.3, Neutrophils # (Auto) 2.24, Lymphocytes # (Auto) 1.08, Monocytes # (Auto) 0.25, Eosinophils # (Auto) 0.04, Basophils # (Auto) 0.01 11/21/17 05:11 Test 11/20/17 19:00 11/20/17 19:10 11/20/17 19:28 11/20/17 23:41 Prothrombin Time 11.4 SECONDS (9.0-12.0) Prothromb Time International Ratio 1.1 (0.9-1.1) Activated Partial Thromboplast Time 20.3 SECONDS (21.0-31.0) Partial Thromboplastin Ratio 0.8 Magnesium Level 2.3 mg/dl (1.8-2.4) Total Bilirubin 0.6 mg/dl (0.2-1) Aspartate Amino Transf (AST/SGOT) 51 U/L (15-37) Alanine Aminotransferase (ALT/SGPT) 24 U/L (12-78) Alkaline Phosphatase 42 U/L (45-117) Troponin I < 0.015 ng/ml (0-0.045) Total Protein 8.9 gm/dl (6.4-8.2) Albumin 4.2 gm/dl (3.4-5.0) Globulin 4.7 gm/dl (2.5-4.0) Albumin/Globulin Ratio 0.9 (0.9-2) Thyroid Stimulating Hormone (TSH) 1.120 uIu/ml (0.300-4.500) Bedside Lactic Acid Venous 2.58 mmol/L (0.90-1.70) Ammonia < 10.0 umol/L (11-32) Lactic Acid Level 1.5 mmol/L (0.4-2.0) Test 11/21/17 02:10 11/21/17 05:11 Urine Color YELLOW Urine Appearance CLEAR (CLEAR) Urine pH 5.0 (4.5-7.5) Urine Specific [place] 1.027 (1.000-1.030) Urine Protein TRACE (NEG) Urine Glucose (UA) NEG (NEG) Urine Ketones TRACE (NEG) Urine Occult Blood NEG (NEG) Urine Nitrite NEG (NEG) Urine Bilirubin NEG (NEG) Urine Urobilinogen NEG (NEG) Urine Leukocyte Esterase NEG (NEG) Urine WBC (Auto) 1-5 /hpf (0-5) Urine RBC (Auto) 0-4 /hpf (0-4) Urine Hyaline Casts (Auto) 5-10 /lpf (0-5) Urine Epithelial Cells (Auto) 5-10 /lpf (0-5) Urine Bacteria (Auto) NEG (NEG) Urine Opiates Screen NEG (NEG) Urine Methadone, Qualitative NEG (NEG) Urine Barbiturates NEG (NEG) Urine Phencyclidine (PCP) Level NEG (NEG) Ur Amphetamine/Methamphetamine NEG (NEG) MDMA (Ecstasy) Screen NEG (NEG) Urine Benzodiazepines Screen NEG (NEG) Urine Cocaine Metabolite NEG (NEG) Urine Marijuana (THC) NEG (NEG) White Blood Count 3.62 K/uL (4.8-10.8) Red Blood Count 3.68 M/uL (4.7-6.1) Hemoglobin 10.0 g/dL (14.0-18.0) Hematocrit 30.4 % (42-52) Mean Corpuscular Volume 82.6 fL (80-100) Mean Corpuscular Hemoglobin 27.2 pg (25-34) Mean Corpuscular Hemoglobin Concent 32.9 g/dl (32-36) Platelet Count 205 K/uL (130-400) Mean Platelet Volume 9.8 fL (7.4-10.4) Neutrophils (%) (Auto) 61.9 % Lymphocytes (%) (Auto) 29.8 % Monocytes (%) (Auto) 6.9 % Eosinophils (%) (Auto) 1.1 % Basophils (%) (Auto) 0.3 % Neutrophils # (Auto) 2.24 K/uL (1.4-6.5) Lymphocytes # (Auto) 1.08 K/uL (1.2-3.4) Monocytes # (Auto) 0.25 K/uL (0.11-0.59) Eosinophils # (Auto) 0.04 K/uL (0-0.5) Basophils # (Auto) 0.01 K/uL (0-0.2) RDW Standard Deviation 39.8 fL (36.4-46.3) RDW Coefficient of Variation 13.1 % (11.5-14.5) Immature Granulocyte % (Auto) 0.0 % Immature Granulocyte # (Auto) 0.00 K/uL (0.00-0.02) Anion Gap 5.0 mmol/L (3-11) Est Creatinine Clear Calc Drug Dose 131.9 ml/min Estimated GFR () > 150.0 Estimated GFR (Non- 130.4 BUN/Creatinine Ratio 28.9 (10-20) Calcium Level 8.4 mg/dl (8.5-10.1) Date/Time Source Procedure Growth Status 11/20/17 23:15 Nasal MRSA DNA Surveillance Screen - Final Specimen Negative for MRSA by DNA Probe Complete Assessment and Plan 32y/oM with hx of catatonic schizophrenia admitted for concern of infection from [facility]. Pt has been non-compliant with medications for a period of time and was worsening for the past 2 weeks. Pt's mental status was altered, was nonverbal, refusing to eat/drink and complete ADLs. He was forced to take medications yesterday. Later he was noted to be tachycardic and mildly febrile and brought to the ED for concern of infection/dehydration. Dehydration/FTT secondary to worsening baseline schizophrenia due to medication non-compliance vs. infection - Afebrile, no WBC elevation, vitals wnl - CXR neg - BCx pending - UA - ketones - MRSA swab neg - Lactate 1.5 - Received a dose of zosyn in the ED, no indication for continued empiric abx coverage - Continue IVF 125mls/hr NS with KCL until tolerating adequate PO intake - Regular diet Altered MS - likely 2/2 schizophrenia - Head CT neg - Ammonia < 10 - electrolytes wnl - tox screen negative - no concern for infection based on work up so far; BCx pending Schizophrenia - Fluphenazine decanoate 37.5mg IM Q2Wks - Benztropine 0.5mg daily - Fluoxetine 40mg daily - Lorazepam 2mg IV and Prolixin 5mg IM PRN for agitation/psychosis DVT prophylaxis: Heparin BID Code: Full Resident Physician Supervision Note: I interviewed and examined the patient. Discussed with Dr. Gilmore and agree with findings and plan as documented in the note. Any exceptions or clarifications are listed here: None Documented By: Merritt Jacobs no HPI or ROS obtainable by me he has eaten a reasonable amoutn of his lunch d/w psychiatry as well vitals noted nad breathing unlabored no pallor or icterus no focal neuro deficits failure to thrive/poor responsiveness -suspect psych related -follow cultures into tomorrow check urine cutlure suspect rehydration has helped -likley back to alf psych tomorrow if no other pathology found stable for med surg otherwise as above Resident Involvement: Resident Care Provided Care Provided: Adult Hospital Medicine
[2017-11-22] MEDS: NSS + 20MEQ KCL 1000ML 1,000 ML IV SCH (02:34)
[2017-11-22 07:18] VITALS: BP 138/91; PULSE 85; TEMP 36.1; O2SAT 100
[2017-11-22] MEDS: FLUOXETINE HCL 20 MG CAP PO SCH ×2 (08:28→09:43)
[2017-11-22] MEDS: BENZTROPINE MESYLATE 0.5 MG TAB PO SCH ×2 (08:28→09:43)
[2017-11-22] MEDS: HEPARIN SOD 5000 UNIT/0.5 ML CARP SQ SCH (09:43)
[2017-11-22 11:15] VITALS: BP 138/91; PULSE 85; TEMP 36.1; O2SAT 100
[2017-11-22] MEDS ORDERED: FLUO20CA36 PO (12:57)
--- NOTE | 2017-11-22 13:10 | Discharge Instructions ---
Discharge Instructions Date of Service November 22, 2017. Admission Reason for Admission: Dehydration, Metabolic Encephalopathy Discharge Discharge Diagnosis / Problem: dehydration and FTT Discharge Goals Goal(s): Decrease discomfort, Diagnostic testing, Therapeutic intervention ( ) Activity Recommendations Activity Limitations: resume your previous activity . Instructions / Follow-Up Instructions / Follow-Up Mr. Field was admitted for concerns of infection as he had a mild fever and tachycardia along with altered mental status. We found him to be dehydrated and his vitals improved with IV fluid rehydration. However, he continued to be disoriented and exhibited delusions, and loose thought process which is likely from worsening of his baseline schizophrenia in the setting of medication noncompliance. He continued to refuse his psychiatric medications during his hospitalization. Our psychiatrist saw him and he was restarted him on his baseline medications: Benztropine 0.5mg daily; Fluoxetine 40mg daily and Fluphenazine decanoate 37.5mg IM Q2 weeks. Our psychiatrist also recommended lorazepam 2mg IV and Prolixin 5mg IM as needed Q4H for agitation/psychosis. At this point, he is medically clear for discharge back to his [facility] as he is hemodynamically stable with negative blood and urine cultures, chest xray and head CT. No concerns for infection at this time. Current Hospital Diet Patient's current hospital diet: Regular Diet Discharge Diet Recommended Diet: Regular Diet Pending Studies Studies pending at discharge: no Medical Emergencies . Who to Call and When: Medical Emergencies: If at any time you feel your situation is an emergency, please call 911 immediately. . Non-Emergent Contact Non-Emergency issues call your: Primary Care Provider Call Non-Emergent contact if: temperature is above 100.5, your pain is worsening . . "Provider Documentation" section prepared by Kennedy Gilmore. .
--- NOTE | 2017-11-22 13:25 | Discharge Summary ---
Discharge Summary Date of Service November 22, 2017. 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 NONVERBAL PATIENT. COMPARISON STUDY: No previous studies for comparison. TECHNIQUE: Axial CT of the brain is performed from the vertex to the skull base. IV contrast was not administered for this examination. A dose lowering technique was utilized adhering to the principles of ALARA. CT DOSE: 614.27 mGy.cm FINDINGS: No intra or extra-axial mass lesions are visualized. There is no CT evidence of acute cortical infarction. There is no evidence of midline shift. There is no acute hemorrhage. No calvarial fractures are visualized. There is no evidence of pathologic ventricular dilatation. There is no evidence of acute sinusitis IMPRESSION: No acute intracranial findings CHEST ONE VIEW PORTABLE CLINICAL HISTORY: Sepsis COMPARISON STUDY: No previous studies for comparison. FINDINGS: The cardiac and mediastinal contours are normal. There is no evidence of focal pulmonary consolidation. There is no evidence of failure. No pleural effusions are visualized.[ IMPRESSION: No active disease in the chest. Consultations: Psychiatry Medication Reconciliation New Medications: Fluoxetine HCl (Fluoxetine HCl) 20 Mg Cap 40 MG PO DAILY for 30 Days, #30 CAP Continued Medications: Benztropine Mesylate (Benztropine Mesylate) 0.5 Mg Tab 0.5 MG PO DAILY Fluphenazine Decanoate (Fluphenazine Decanoate) 25 Mg/Ml Inj 37.5 MG IM Q2 WEEKS ADMINISTER ONCE EVERY 2 WEEKS ON THURSDAY Discharge Exam Unable to obtain ROS due to pt non-responsiveness Physical Exam: General Appearance: no apparent distress Eyes: normal inspection Respiratory/Chest: lungs clear, normal breath sounds Cardiovascular: regular rate, rhythm, no murmur Abdomen / GI: normal bowel sounds, non tender, soft Extremities: no calf tenderness, no pedal edema Neurologic/Psychiatric: alert, + disoriented, + pertinent finding (A&O x 1 to person only; flat affect; thought process is very loose/word salad exhibited ; thought content is delusional) Skin: warm/dry Hospital Course 32y/oM with hx of catatonic schizophrenia admitted for concern of infection from [facility]. Pt has been non-compliant with medications for a period of time and was worsening for the past 2 weeks. Pt's mental status was altered ( nonverbal, refusing to eat/drink and complete ADLs). He had to be forced to take medications the day prior to admission. Later he was noted to be tachycardic and mildly febrile and brought to the ED for concern of infection/ dehydration. Based on observation and extensive work up below, no concern for infection. Symptoms likely from worsening Schizophrenia in the setting of medication non-compliance Dehydration/FTT secondary to worsening baseline schizophrenia due to medication non-compliance vs. infection - Afebrile, no WBC elevation, vitals wnl (improved post IVF) - CXR neg - BCx NGTD - UA - ketones - UCx neg - MRSA swab neg - Lactate 1.5 - normal - Received a dose of zosyn in the ED, no indication for continued empiric abx coverage - Received IVF 125mls/hr NS with KCL - Regular diet Altered MS - likely 2/2 schizophrenia - Head CT neg - Ammonia < 10 - electrolytes wnl - tox screen negative - CXR, BCx and UCx neg: no concern for infection related AMS Schizophrenia - Fluphenazine decanoate 37.5mg IM Q2Wks - Benztropine 0.5mg daily - Fluoxetine 40mg daily - Lorazepam 2mg IV and Prolixin 5mg IM PRN for agitation/psychosis DVT prophylaxis: Heparin BID Code: Full Resident Physician Supervision Note: I interviewed and examined the patient. Discussed with Dr. Gilmore and agree with findings and plan as documented in the note. Any exceptions or clarifications are listed here: None Documented By: Merritt Jacobs nonverbal for me. talked (albeit frequently nonsensically) for RN and Dr Gilmore no new problems vitals noted nad cardio reg no r/m/g lungs cta b/l no r/r/w moderate spontaneous effort remainder of exam besides withdrawn mental status as above dehydration - if anything medical was at play during this stay, dehydration from poor intake appears to have been the only true medical dx. improved w fluids - would follow PO intake closely and if he falls behind again would look for [facility] or, if this is not possible, [facility], if necessary schizophrenia - ongoing psych with his regular team at [facility] otherwise as above Total Time Spent: Less than 30 minutes This includes examination of the patient, discharge planning, medication reconciliation, and communication with other providers. Discharge Instructions Please refer to the electronic Patient Visit Report (Discharge Instructions) for additional information. Additional Copies To [facility]
[2017-12-02] MEDS ORDERED: FLUPHENAZINE DECANOATE 25 MG/ML IM SCH (09:00)
[2017-12-04] MEDS ORDERED: FLUPHENAZINE DECANOATE 25 MG/ML IM SCH (09:00)
== END 2017-11-22 15:21 | disposition home or self-care (01) ==
LOC: C.EDB 18:39 → C.2E 21:10 → ENRESERV 21:28 → C.MS4W 11-21 18:24
PROVIDERS: ADMIT Hospitalist; ATTEND Family Medicine
DX: E86.0 Dehydration (principal); R62.7 Adult failure to thrive; F20.9 Schizophrenia, unspecified; Z91.14 Patient's other noncompliance with medication regimen